=== PATIENT | male | born 1945 | race Caucasian/White ===

== ENCOUNTER 2019-08-09 08:03 | Emergency (ER) | payer OTHER ==
[~2019-08-09] VITALS: Ht 175.3 cm; Wt 88.0 kg
[2019-08-09 08:09] VITALS: BP 173/90; Ht 175.3 cm; Wt 88.0 kg
== END 2019-08-09 09:43 | disposition home or self-care (01) ==
LOC: ED 08:03
DX: L03.116 Cellulitis of left lower limb (principal)

== ENCOUNTER 2020-05-16 02:09 | Emergency (ER) | payer OTHER ==
[~2020-05-16] VITALS: Ht 172.7 cm; Wt 86.2 kg
[2020-05-16 02:24] VITALS: Ht 172.7 cm; Wt 86.2 kg
[2020-05-16 04:11] VITALS: BP 152/88
== END 2020-05-16 04:11 | disposition home or self-care (01) ==
LOC: ED 02:09
DX: L03.116 Cellulitis of left lower limb (principal); L03.115 Cellulitis of right lower limb

== ENCOUNTER 2020-05-31 03:58 | Emergency (ER) | payer OTHER ==
[~2020-05-31] VITALS: Ht 172.7 cm; Wt 85.7 kg
[2020-05-31 04:07] VITALS: Ht 172.7 cm; Wt 85.7 kg
[2020-05-31 05:30] VITALS: BP 162/88
== END 2020-05-31 05:00 | disposition home or self-care (01) ==
LOC: ED 03:58
DX: I87.2 Venous insufficiency (chronic) (peripheral) (principal)